=== PATIENT | male | born 1975 | race Caucasian/White ===

== ENCOUNTER 2023-05-15 19:15 | Emergency (ER) | payer OTHER ==
[2023-05-15 19:48] VITALS: RESP 18; TEMP 97.9
--- NOTE | 2023-05-15 21:01 | ED ---
Extremity Problem HPI - General Chief complaint: Extremity Problem,Nontraumatic Stated complaint: Left Knee injury Time Seen by Provider: 05/15/23 21:00 Source: patient Mode of arrival: ambulatory Limitations: no limitations - History of Present Illness Initial comments: 47 year old male presenting to the ED with a chief complaint of left knee pain. Patient states after doing legs noticed pain and swelling of his left knee. No other complaints. - Related Data Allergies Allergy/AdvReac Type Severity Reaction Status Date / Time No Known Allergies Allergy Verified 05/15/23 19:29 Review of Systems ROS Statement: Those systems with pertinent positive or pertinent negative responses have been documented in the HPI. ROS Other: All systems not noted in ROS Statement are negative. Past Medical History Past Medical History: No Reported History History of Any Multi-Drug Resistant Organisms: None Reported Past Surgical History: No Surgical Hx Reported Past Psychological History: No Psychological Hx Reported Smoking Status: Never smoker Past Alcohol Use History: Daily Past Drug Use History: Marijuana General Exam - General Exam Comments Initial Comments: Visual Physical Exam Vital signs reviewed General: Well-appearing, nontoxic, no acute distress. Head: Normocephalic, atraumatic Eyes: PERRLA, EOMI ENT: Airway patent Chest: Nonlabored breathing Skin: No visual rash, normal skin tone Neuro: Alert and oriented 3 Musculoskeletal: No gross abnormalities Limitations: no limitations General appearance: alert, in no apparent distress Neck exam: Present: normal inspection Respiratory exam: Present: normal lung sounds bilaterally Cardiovascular Exam: Present: regular rate, normal rhythm GI/Abdominal exam: Present: soft Extremities exam: Present: other (Active range of motion of bilateral lower extremities. Left knee shows full active range of motion. And waiting without difficulty. No obvious deformities.) Neurological exam: Present: alert, oriented X3 Skin exam: Present: warm, dry Course Vital Signs 05/15/23 19:27 Temperature 97.9 F Pulse Rate 90 Respiratory 18 Rate Blood Pressure 116/80 O2 Sat by Pulse 99 Oximetry Medical Decision Making - Medical Decision Making Was pt. sent in by a medical professional or institution (, PA, INVESTMENT ASSOCIATE, urgent care, hospital, or assisted...) When possible be specific @ -No Did you speak to anyone other than the patient for history (EMS, parent, family, police, friend...)? What history was obtained from this source @ -No Did you review nursing and triage notes (agree or disagree)? Why? @ -I reviewed and agree with nursing and triage notes Were old charts reviewed (outside hosp., previous admission, EMS record, old EKG, old radiological studies, urgent care reports/EKG's, assisted records)? Report findings @ -No old charts were reviewed Differential Diagnosis (chest pain, altered mental status, abdominal pain women, abdominal pain men, vaginal bleeding, weakness, fever, dyspnea, syncope, headache, dizziness, GI bleed, back pain, seizure, CVA, palpatations, mental health, musculoskeletal)? @ -Differential Musculoskeletal Muscular strain, contusion, ligament sprain, fracture, arthritis, septic arthritis, bursitis, cellulitis, muscle spasm, nerve compression, DVT, arterial occlusion, herpes zoster, electrolyte abnormality, tumor.... This is not meant to be in all inclusive list EKG interpreted by me (3pts min.). @ -None X-rays interpreted by me (1pt min.). @ -X-rays of the knee interpreted by me showing no evidence of acute bony findings. CT interpreted by me (1pt min.). @ -None done U/S interpreted by me (1pt. min.). @ -None done What testing was considered but not performed or refused? (CT, X-rays, U/S, labs)? Why? @ -None What meds were considered but not given or refused? Why? @ -None Did you discuss the management of the patient with other professionals (professionals i.e. , PA, INVESTMENT ASSOCIATE, lab, RT, psych nurse, medical social consultant, anthropologist, teacher, senior compliance officer, social work case manager)? Give summary @ -No Was smoking cessation discussed for >3mins.? @ -No Was critical care preformed (if so, how long)? @ -No Were there social determinants of health that impacted care today? How? (Homelessness, low income, unemployed, alcoholism, drug addiction, transportation, low edu. Level, literacy, decrease access to med. care, custodial, rehab)? @ -No Was there de-escalation of care discussed even if they declined (Discuss DNR or withdrawal of care, Hospice)? DNR status @ -No What co-morbidities impacted this encounter? (DM, HTN, Smoking, COPD, CAD, Cancer, CVA, ARF, Chemo, Hep., AIDS, mental health diagnosis, sleep apnea, morbid obesity)? @ -None Was patient admitted / discharged? Hospital course, mention meds given and route, prescriptions, significant lab abnormalities, going to OR and other pe rtinent info. @ -Discharge 47-year-old male presenting to the ED with a chief complaint of knee pain. Patient had x-ray performed. Upon return from x-ray patient did show soft t issue deformity that was not there with prior x-ray. Therefore repeat was done that did show soft tissue swelling however no evidence of bony findings. Patient placed in knee immobilizer and will follow up with orthopedics. Discharged home in stable condition. Discussed return precautions with patient who verbalizes agreement. Undiagnosed new problem with uncertain prognosis? @ -No Drug Therapy requiring intensive monitoring for toxicity (Heparin, Nitro, Insulin, Cardizem)? @ -No Were any procedures done? @ -No Diagnosis/symptom? @ -Knee pain Acute, or Chronic, or Acute on Chronic? @ -Acute Uncomplicated (without systemic symptoms) or Complicated (systemic symptoms)? @ -Uncomplicated Side effects of treatment? @ -No Exacerbation, Progression, or Severe Exacerbation? @ -No Poses a threat to life or bodily function? How? (Chest pain, [place], AR, pneumonia, PE, COPD, DKA, ARF, appy, cholecystitis, CVA, Diverticulitis, Homicidal, Suicidal, threat to staff... and all critical care pts) @ -No Disposition Clinical Impression: Knee pain Disposition: HOME SELF-CARE Condition: Good Additional Instructions: Please return to the Emergency Department if symptoms worsen or any other concerns. Please follow up with orthopedics. Is patient prescribed a controlled substance at d/c from ED?: No Referrals: Bryan Gutierrez MD [Primary Care Provider] - 1-2 days Laura Wick DO [Doctor of Osteopathic Medicine] - 1-2 days Time of Disposition: 22:33
--- NOTE | 2023-05-15 21:38 | XR ---
Left knee. HISTORY: Knee pain and swelling. COMPARISON: None. TECHNIQUE: 4 views left knee were obtained. FINDINGS: There is no fracture, dislocation, interosseous, intra-articular or soft tissue abnormality. IMPRESSION: No significant abnormality seen..
--- NOTE | 2023-05-15 22:00 | XR ---
Left knee HISTORY: Left knee deformity and pain. COMPARISON: 05/15/2023. His left knee were obtained. The osseous structures are intact there is no fracture or focal intraosseous abnormality. The joint s paces are well-maintained. There is no definite joint effusion. There is soft tissue thickening in the infrapatellar region and there is no soft tissue calcification . IMPRESSION: Soft tissue swelling anteriorly but no focal osseous lesion or intra-articular abnormality. MRI would be useful for further evaluation.
[2023-05-15 23:09] VITALS: BP 123/81; PULSE 83
== END 2023-05-15 22:47 | disposition home or self-care (01) ==
LOC: SUPCPDRO 19:15 → EC 19:15
DX: M25.562 Pain in left knee (principal); F12.90 Cannabis use, unspecified, uncomplicated
CPT/HCPCS: 99283